=== PATIENT | male | born 1990 | race Caucasian/White ===

== ENCOUNTER 2023-03-16 19:44 | Emergency (ER) | payer BC ==
[2023-03-16] MEDS ORDERED: Lidocaine 1% with EPINEPHrine 1:100,000 20 ML MDV INJECT ONE (20:57)
[2023-03-16] MEDS ORDERED: Clindamycin HCl 150 MG Cap PO STA (21:15)
== END 2023-03-16 21:43 | disposition home or self-care (01) ==
LOC: MW.ED 19:44
DX: L02.416 Cutaneous abscess of left lower limb (principal)
CPT/HCPCS: 10060; 87070; 87205; 99283; A9270; J3490

== ENCOUNTER 2023-03-18 17:29 | Emergency (ER) | payer BC | END 2023-03-18 19:10 | disposition home or self-care (01) | LOC: MW.ED 17:29 | DX: L03.116 Cellulitis of left lower limb (principal); L02.416 Cutaneous abscess of left lower limb | CPT/HCPCS: 99282; 99283 ==